=== PATIENT | female | born 1990 | race American Indian/Alaskan Native ===

== ENCOUNTER 2020-07-28 07:00 | Emergency (ER) | payer SELFPAY ==
--- NOTE | 2020-07-28 08:14 | Emergency Department Report ---
ED General Adult HPI - General Chief complaint: Abdominal Pain Stated complaint: NAUSEA;ABDOMINAL PAIN Time Seen by Provider: 07/28/20 07:43 Source: patient Mode of arrival: Ambulatory Limitations: No Limitations - History of Present Illness Initial comments: This is a 29-year-old female complains of intermittent epigastric pain described as cramping. She does not report reflux symptoms nor belching or burping. She states that her periods are chronically irregular and that this 1 is late. She states that over the last 2 weeks she occasionally forces herself to throw up. She has been constipated. She is not currently nauseated. She denies fever or chills. Patient denies any chronic symptoms of irritable bowel or GI symptoms per se. She does have dysfunctional uterine bleeding. She has not had any prior surgery. -: Gradual, week(s) Location: abdomen Radiation: non-radiation Quality: other (Cramping) Consistency: intermittent Improves with: none Associated Symptoms: denies other symptoms (As above) Treatments Prior to Arrival: none - Related Data Previous Rx's Medication Instructions Recorded Last Taken Type Nitrofurantoin [place]/M-Cryst 100 mg PO Q12HR #10 capsule 07/28/20 Unknown Rx [Macrobid CAP] Allergies Allergy/AdvReac Type Severity Reaction Status Date / Time No Known Allergies Allergy Unverified 07/28/20 08:00 ED Review of Systems ROS: Stated complaint: NAUSEA;ABDOMINAL PAIN Other details as noted in HPI Constitutional: denies: chills, fever Eyes: denies: eye pain, eye discharge, vision change ENT: denies: ear pain, throat pain Respiratory: denies: cough, shortness of breath, wheezing Cardiovascular: denies: chest pain, palpitations Endocrine: no symptoms reported Gastrointestinal: as per HPI, abdominal pain, constipation. denies: nausea, diarrhea Genitourinary: denies: urgency, dysuria, discharge Musculoskeletal: denies: back pain, joint swelling, arthralgia Skin: denies: rash, lesions Neurological: denies: headache, weakness, paresthesias Psychiatric: denies: anxiety, depression Hematological/Lymphatic: denies: easy bleeding, easy bruising ED Past Medical Hx - Past Medical History Previous Medical History?: No - Surgical History Past Surgical History?: No - Social History Smoking Status: Never Smoker Substance Use Type: Alcohol, Marijuana - Medications Home Medications: Home Medications Medication Instructions Recorded Confirmed Last Taken Type Nitrofurantoin [place]/M-Cryst 100 mg PO Q12HR #10 capsule 07/28/20 Unknown Rx [Macrobid CAP] ED Physical Exam - General Limitations: No Limitations General appearance: alert, in no apparent distress - Head Head exam: Present: atraumatic, normocephalic - Eye Eye exam: Present: normal appearance. Absent: scleral icterus - ENT ENT exam: Present: mucous membranes moist - Neck Neck exam: Present: normal inspection - Respiratory Respiratory exam: Present: normal lung sounds bilaterally. Absent: respiratory distress - Cardiovascular Cardiovascular Exam: Present: regular rate, normal rhythm. Absent: systolic murmur, diastolic murmur, rubs, gallop - GI/Abdominal GI/Abdominal exam: Present: soft, normal bowel sounds. Absent: distended, tenderness, guarding, rebound, rigid - Extremities Exam Extremities exam: Present: normal inspection - Back Exam Back exam: Present: normal inspection - Neurological Exam Neurological exam: Present: alert, oriented X3, CN II-XII intact. Absent: motor sensory deficit - Psychiatric Psychiatric exam: Present: normal affect, normal mood - Skin Skin exam: Present: warm, dry, intact, normal color. Absent: rash ED Course Vital Signs 07/28/20 07/28/20 07/28/20 07:12 07:57 07:58 Temperature 98.4 F Pulse Rate 78 77 Respiratory 18 11 L 12 Rate Blood Pressure 143/74 Blood Pressure 124/65 [Left] O2 Sat by Pulse 100 99 98 Oximetry 07/28/20 08:00 Temperature Pulse Rate 73 Respiratory 17 Rate Blood Pressure 130/70 Blood Pressure [Left] O2 Sat by Pulse 98 Oximetry - Reevaluation(s) Reevaluation #1: Patient asymptomatic, texting on her phone, resting comfortably. Ultrasound findings explained. Will place on a short course of Macrobid pending urine culture. Patient has [employer]. 07/28/20 13:11 ED Medical Decision Making - Lab Data Result diagrams: 07/28/20 08:26 07/28/20 08:26 Laboratory Results - last 24 hr 07/28/20 07/28/20 07/28/20 08:26 08:26 10:57 WBC 6.9 RBC 3.77 Hgb 12.9 Hct 36.5 MCV 97 MCH 34 H MCHC 35 H RDW 11.8 L Plt Count 207 Lymph % (Auto) 18.2 [place] % (Auto) 6.4 Eos % (Auto) 0.5 Baso % (Auto) 0.9 Lymph # (Auto) 1.3 [place] # (Auto) 0.4 Eos # (Auto) 0.0 Baso # (Auto) 0.1 Seg Neutrophils % 74.0 H Seg Neutrophils # 5.1 Sodium 137 Potassium 4.1 Chloride 99.9 Carbon Dioxide 26 Anion Gap 15 BUN 8 Creatinine 0.7 Estimated GFR > 60 BUN/Creatinine Ratio 11 Glucose 79 Calcium 9.4 Total Bilirubin 0.90 Direct Bilirubin < 0.2 AST 22 ALT 17 Alkaline Phosphatase 45 Total Protein 7.2 Albumin 4.4 Albumin/Globulin Ratio 1.6 Lipase 24 HCG, Quant 62183 H Urine Color Urine Turbidity Urine pH Ur Specific [place] Urine Protein Urine Glucose (UA) Urine Ketones Urine Blood Urine Nitrite Ur Reducing Substances Urine Bilirubin Urine Ictotest Urine Urobilinogen Ur Leukocyte Esterase Urine WBC (Auto) Urine RBC (Auto) U Epithel Cells (Auto) Urine Bacteria (Auto) Urine Mucus Urine HCG, Qual 07/28/20 Unknown WBC RBC Hgb Hct MCV MCH MCHC RDW Plt Count Lymph % (Auto) [place] % (Auto) Eos % (Auto) Baso % (Auto) Lymph # (Auto) [place] # (Auto) Eos # (Auto) Baso # (Auto) Seg Neutrophils % Seg Neutrophils # Sodium Potassium Chloride Carbon Dioxide Anion Gap BUN Creatinine Estimated GFR BUN/Creatinine Ratio Glucose Calcium Total Bilirubin Direct Bilirubin AST ALT Alkaline Phosphatase Total Protein Albumin Albumin/Globulin Ratio Lipase HCG, Quant Urine Color Yellow Urine Turbidity Clear Urine pH 6.0 Ur Specific [place] 1.027 Urine Protein 30 mg/dl Urine Glucose (UA) Neg Urine Ketones 80 Urine Blood Neg Urine Nitrite Neg Ur Reducing Substances Not Reportable Urine Bilirubin Neg Urine Ictotest Not Reportable Urine Urobilinogen < 2.0 Ur Leukocyte Esterase Neg Urine WBC (Auto) 2.0 Urine RBC (Auto) 2.0 U Epithel Cells (Auto) 9.0 Urine Bacteria (Auto) 2+ Urine Mucus 3+ Urine HCG, Qual Positive A Critical care attestation.: If time is entered above; I have spent that time in minutes in the direct care of this critically ill patient, excluding procedure time. ED Disposition Clinical Impression: Intrauterine Abdominal pain Qualifiers: Abdominal location: epigastric Qualified Code(s): R10.13 - Epigastric pain UTI (urinary tract infection) Qualifiers: Urinary tract infection type: site unspecified Hematuria presence: without hematuria Qualified Code(s): N39.0 - Urinary tract infection, site not specified Disposition: TO HOME OR SELFCARE Is pt being admited?: No Does the pt Need Aspirin: No Condition: Stable Instructions: Abdominal Pain (ED), and Travel, Abdominal Pain, Adult, [id number] Additional Instructions: I am going to place you on an antibiotic pending the results of your urine culture. Your OB doctor can follow-up on that. Return to the emergency department any acute change or problem. Prescriptions: Nitrofurantoin [place]/M-Cryst [Macrobid CAP] 100 mg PO Q12HR #10 capsule Referrals: PRIMARY CARE,MD [Primary Care Provider] - 3-5 Days Usual, scout [Other] - 3-5 Days Time of Disposition: 13:14
[2020-07-28 08:35] VITALS: BP 130/70
[2020-07-28 08:40] LABS: HCG Qualitative,Urine Positive (Negative)
[2020-07-28 08:45] LABS: Basophils # (Auto) 0.1 K/mm3 (0.0-0.1); Basophils % (Auto) 0.9 % (0.0-1.8); Eosinophils % (Auto) 0.5 % (0.0-4.3); Hematocrit 36.5 % (30.3-42.9); Hemoglobin 12.9 gm/dl (10.1-14.3); Lymphocytes # (Auto) 1.3 K/mm3 (1.2-5.4); Lymphocytes % (Auto) 18.2 % (13.4-35.0); Mean Corpuscular HGB Conc 35 % (30-34); Mean Corpuscular Volume 97 fl (79-97); Monocytes # (Auto) 0.4 K/mm3 (0.0-0.8); Monocytes % (Auto) 6.4 % (0.0-7.3); Platelet Count 207 K/mm3 (140-440); Red Blood Count 3.77 M/mm3 (3.65-5.03); Red Cell Distribution Width 11.8 % (13.2-15.2)
[2020-07-28 08:54] LABS: Bacteria,Urine 2+ /HPF (Negative); Bilirubin,Urine NEG (Negative); Blood,Urine NEG (Negative); Color,Urine Yellow (Yellow); Mucus,Urine 3+ /HPF; Urobilinogen,Urine < 2.0 mg/dL (<2.0)
[2020-07-28 09:12] LABS: Alanine Aminotransferase 17 units/L (7-56); Albumin 4.4 g/dL (3.9-5); Blood Urea Nitrogen 8 mg/dL (7-17); Calcium 9.4 mg/dL (8.4-10.2); Hemolysis Index 4
[2020-07-28 09:14] LABS: BUN/Creatinine Ratio 11; Bilirubin,Direct < 0.2 mg/dL (0-0.2)
--- NOTE | 2020-07-28 12:55 | Ultrasound Report ---
US OB <= 14 weeks fetus INDICATION / CLINICAL INFORMATION: abd pain. COMPARISON: None available. FINDINGS: Transabdominal and transvaginal imaging was performed. Single, viable intrauterine . heart rate 102. Gestational sac is slightly elongated, measuring an average of 17 mm diameter, corresponding to a ges tational age of 6 weeks 4 days. pole is quite small and poorly seen. Left ovary is normal. Right ovary contains a 2 cm cyst. No free fluid. IMPRESSION: 1. Very early single, viable intrauterine . Because the pole is not at all well seen, I would suggest follow-up in one to 2 weeks. Signer Name: Xavier Shaffer MD Signed: 07/28/2020 12:50 PM Workstation Name: [id number]
== END 2020-07-28 13:34 | disposition home or self-care (01) ==
LOC: ED 07:00
DX: O00.01 Abdominal pregnancy with intrauterine pregnancy (principal); O23.41 Unspecified infection of urinary tract in pregnancy, first trimester; Z3A.01 Less than 8 weeks gestation of pregnancy; F12.10 Cannabis abuse, uncomplicated; Z79.899 Other long term (current) drug therapy
CPT/HCPCS: 36415; 76801; 80048; 80076; 81001; 81025; 83690; 84702; 85025; 87086